=== PATIENT | female | born 1990 | race Caucasian/White ===

== ENCOUNTER 2022-10-26 08:21 | Observation (INO) | payer BC ==
[2022-10-26] MEDS ORDERED: IPRATROPIUM-ALBUTEROL 3 ML NEB INHALATION STA ×2 (08:53→11:33)
--- NOTE | 2022-10-26 09:00 | ED ---
SOB HPI - General Chief Complaint: Shortness of Breath Stated Complaint: SOB Time Seen by Provider: 10/26/22 08:42 Source: patient, RN notes reviewed Mode of arrival: ambulatory Limitations: no limitations - History of Present Illness Initial Comments: This is a 32-year-old female who presents to the emergency department for coughing and shortness of breath. States that the symptoms started approximately 11 days ago. She went to urgent care 3 days ago and was started on prednisone and amoxicillin. States that she has continued to have no relief from these medications. She is also using her rescue inhaler and nebulizer breathing treatments at home, again with no relief. States that she feels "crackling" in her chest. With regards to the shortness of breath, states that she feels like she cannot catch her breath or take a deep breath. Also reports exposure to ammonia in her dog urine and is concerned that this may be contributing to her symptoms. Denies any fevers, chills, sore throat, palpitations, abdominal pain, nausea, v omiting, diarrhea, back pain, or headaches. MD Complaint: shortness of breath, cough, chest pain Onset/Timin -: days(s) - Related Data Home Medications Medication Instructions Recorded Confirmed Albuterol Sulfate [Albuterol 2 puff PO RT-Q4H PRN 10/26/22 10/26/22 Sulfate Hfa] Amoxic-Pot Clav 875-125Mg 1 tab PO BID 10/26/22 10/26/22 [Augmentin 875-125] Cetirizine HCl [Zyrtec] 10 mg PO DAILY 10/26/22 10/26/22 Omeprazole [PriLOSEC] 20 mg PO DAILY 10/26/22 10/26/22 predniSONE [Deltasone] 40 mg PO BID 10/26/22 10/26/22 Allergies Allergy/AdvReac Type Severity Reaction Status Date / Time No Known Allergies Allergy Verified 10/26/22 11:33 Review of Systems ROS Statement: Those systems with pertinent positive or pertinent negative responses have been documented in the HPI. ROS Other: All systems not noted in ROS Statement are negative. Past Medical History Past Medical History: Asthma History of Any Multi-Drug Resistant Organisms: None Reported Past Surgical History: Section, Tonsillectomy Past Psychological History: No Psychological Hx Reported Smoking Status: Former smoker Past Alcohol Use History: None Reported Past Drug Use History: None Reported General Exam Limitations: no limitations General appearance: alert, in no apparent distress Head exam: Present: atraumatic, normocephalic, normal inspection Respiratory exam: Present: wheezes, decreased breath sounds, prolonged expiratory, other (Speaking in 2-3 word sentences) Cardiovascular Exam: Present: regular rate, normal rhythm, normal heart sounds. Absent: systolic murmur, diastolic murmur, rubs, gallop, clicks Neurological exam: Present: alert, oriented X3, CN II-XII intact Psychiatric exam: Present: normal affect, normal mood Skin exam: Present: warm, dry, intact, normal color. Absent: rash Course Vital Signs 10/26/22 10/26/22 10/26/22 08:39 09:13 09:44 Temperature 98.1 F Pulse Rate 91 84 Respiratory 16 18 20 Rate Blood Pressure 128/86 O2 Sat by Pulse 96 Oximetry 10/26/22 10/26/22 10/26/22 09:50 10:23 11:46 Temperature 98.2 F Pulse Rate 84 61 84 Respiratory 20 18 18 Rate Blood Pressure 130/82 O2 Sat by Pulse 98 Oximetry 10/26/22 10/26/22 11:55 12:20 Temperature 98.6 F Pulse Rate 88 78 Respiratory 18 18 Rate Blood Pressure 137/85 O2 Sat by Pulse 98 Oximetry Medical Decision Making - Medical Decision Making This is a 32-year-old female who presents to the emergency department for coughing and shortness of breath. Was pt. sent in by a medical professional or institution? @ -No Did you speak to anyone other than the patient for history? @ -No Did you review nursing and triage notes? @ -Yes, and I agree, it is accurate with regards to the patient's symptoms. Were old charts reviewed? @ -No Differential Diagnosis? @ -Differential Dyspnea: Coronary syndrome, arrhythmia, tamponade, asthma, COPD, pulmonary embolism, pneumonia, pneumothorax, pulmonary effusion, anaphylaxis, diabetic ketoacidosis, flailed chest, pulmonary contusion, diaphragmatic rupture, anemia, neuromuscular, this is not meant to be an all-inclusive list. EKG interpreted by me (3pts min.)? @ -EKG interpreted by me demonstrating the following: Sinus rhythm with occasional PVCs. Ventricular rate 70 beats per minute, [place] interval 152 ms, QRS duration 112 ms, QTC 400 ms. X-rays interpreted by me (1pt min.)? @ -Chest x-ray obtained, my interpretation identifies no localized consolidations or infiltrates. CT interpreted by me (1pt min.)? @ -Not obtained U/S interpreted by me (1pt. min.)? @ -Not obtained What testing was considered but not performed? (CT, X-rays, U/S, labs)? Why? @ -None What meds were considered but not given? Why? @ -None Did you discuss the management of the patient with other professionals? @ -Yes, Dr. Ambriz, who accepts the patient for admission. Did you reconcile home meds? @ -No Was smoking cessation discussed for >3mins.? @ -No Was critical care preformed (if so, how long)? @ -No Were there social determinants of health that impacted care today? How? (Homelessness, low income, unemployed, alcoholism, drug addiction, transportation, low edu. Level, literacy, decrease access to med. care, usp, rehab)? @ -No Was there de-escalation of care discussed even if they declined? (Discuss DNR or withdrawal of care, Hospice)? @ -No What co-morbidities impacted this encounter? (DM, HTN, Smoking, COPD, CAD, Cancer, CVA, Hep., AIDS, mental health diagnosis, sleep apnea, morbid obesity)? @ -Asthma Was patient admitted / discharged? @ -Admitted. Lab work obtained revealing leukocytosis and was otherwise nonactionable. Chest x-ray reveals no acute process. Patient was given a DuoNeb breathing treatment with only minor improvement in symptoms. She continued to speak in 2-3 words sentences and was having a notably difficult time catching her breath. Symptoms likely related to an asthma exacerbation. Given her reported severity of her symptoms, patient does not feel comfortable going home. She was subsequently admitted to medicine for asthma exacerbation with failed outpatient management. Solu-Medrol was administered. Pro- calcitonin and CRP were also added onto blood work with results pending at the time of admission. Undiagnosed new problem with uncertain prognosis? @ -None Drug Therapy requiring intensive monitoring for toxicity (Heparin, Nitro, Insulin, Cardizem)? @ -None Were any procedures done? @ -None Diagnosis/symptom? @ -Asthma exacerbation Acute, or Chronic, or Acute on Chronic? @ -Acute on chronic Uncomplicated (without systemic symptoms) or Complicated (systemic symptoms)? @ -Uncomplicated Side effects of treatment? @ -None Exacerbation, Progression, or Severe Exacerbation] @ -Exacerbation Poses a threat to life or bodily function? @ -Yes This case was discussed in detail with the attending ED physician, Dr. Mckeon. Presentation, findings, and treatment plan discussed in detail as well. - Lab Data Result diagrams: 10/26/22 08:59 10/26/22 08:59 Lab Results 10/26/22 10/26/22 10/26/22 Range/Units 08:59 08:59 08:59 WBC 13.6 H (3.8-10.6) k/uL RBC 5.24 (3.80-5.40) m/uL Hgb 13.2 (11.4-16.0) gm/dL Hct 39.3 (34.0-46.0) % MCV 75.0 L (80.0-100.0) fL MCH 25.3 (25.0-35.0) pg MCHC 33.7 (31.0-37.0) g/dL RDW 14.8 (11.5-15.5) % Plt Count 339 (150-450) k/uL MPV 6.9 Neutrophils % 70 % Lymphocytes % 22 % Monocytes % 5 % Eosinophils % 2 % Basophils % 0 % Neutrophils # 9.4 H (1.3-7.7) k/uL Lymphocytes # 2.9 (1.0-4.8) k/uL Monocytes # 0.7 (0-1.0) k/uL Eosinophils # 0.3 (0-0.7) k/uL Basophils # 0.1 (0-0.2) k/uL Microcytosis Slight PT 10.9 (9.0-12.0) sec INR 1.0 (<1.2) APTT 22.8 (22.0-30.0) sec D-Dimer 0.48 (<0.60) mg/L FEU Sodium 138 (137-145) mmol/L Potassium 3.5 (3.5-5.1) mmol/L Chloride 104 (98-107) mmol/L Carbon Dioxide 25 (22-30) mmol/L Anion Gap 9 mmol/L BUN 13 (7-17) mg/dL Creatinine 0.84 (0.52-1.04) mg/dL Est GFR (CKD-EPI)AfAm >90 (>60 ml/min/1.73 sqM) Est GFR (CKD-EPI)NonAf >90 (>60 ml/min/1.73 sqM) Glucose 86 (74-99) mg/dL Plasma Lactic Acid Cong (0.7-2.0) mmol/L Calcium 8.9 (8.4-10.2) mg/dL Total Bilirubin 0.6 (0.2-1.3) mg/dL AST 29 (14-36) U/L ALT 21 (4-34) U/L Alkaline Phosphatase 79 (38-126) U/L Ammonia (<30) umol/L Troponin I (0.000-0.034) ng/mL C-Reactive Protein (<1.0) mg/dL Total Protein 6.9 (6.3-8.2) g/dL Albumin 3.8 (3.5-5.0) g/dL HCG, Qual Not Detected Influenza Type A (PCR) (Not Detectd) Influenza Type B (PCR) (Not Detectd) RSV (PCR) (Not Detectd) SARS-CoV-2 (PCR) (Not Detectd) 10/26/22 10/26/22 10/26/22 Range/Units 08:59 08:59 08:59 WBC (3.8-10.6) k/uL RBC (3.80-5.40) m/uL Hgb (11.4-16.0) gm/dL Hct (34.0-46.0) % MCV (80.0-100.0) fL MCH (25.0-35.0) pg MCHC (31.0-37.0) g/dL RDW (11.5-15.5) % Plt Count (150-450) k/uL MPV Neutrophils % % Lymphocytes % % Monocytes % % Eosinophils % % Basophils % % Neutrophils # (1.3-7.7) k/uL Lymphocytes # (1.0-4.8) k/uL Monocytes # (0-1.0) k/uL Eosinophils # (0-0.7) k/uL Basophils # (0-0.2) k/uL Microcytosis PT (9.0-12.0) sec INR (<1.2) APTT (22.0-30.0) sec D-Dimer (<0.60) mg/L FEU Sodium (137-145) mmol/L Potassium (3.5-5.1) mmol/L Chloride (98-107) mmol/L Carbon Dioxide (22-30) mmol/L Anion Gap mmol/L BUN (7-17) mg/dL Creatinine (0.52-1.04) mg/dL Est GFR (CKD-EPI)AfAm (>60 ml/min/1.73 sqM) Est GFR (CKD-EPI)NonAf (>60 ml/min/1.73 sqM) Glucose (74-99) mg/dL Plasma Lactic Acid Cong 1.2 (0.7-2.0) mmol/L Calcium (8.4-10.2) mg/dL Total Bilirubin (0.2-1.3) mg/dL AST (14-36) U/L ALT (4-34) U/L Alkaline Phosphatase (38-126) U/L Ammonia <9 (<30) umol/L Troponin I <0.012 (0.000-0.034) ng/mL C-Reactive Protein (<1.0) mg/dL Total Protein (6.3-8.2) g/dL Albumin (3.5-5.0) g/dL HCG, Qual Influenza Type A (PCR) Not Detected (Not Detectd) Influenza Type B (PCR) Not Detected (Not Detectd) RSV (PCR) Not Detected (Not Detectd) SARS-CoV-2 (PCR) Not Detected (Not Detectd) 10/26/22 Range/Units 08:59 WBC (3.8-10.6) k/uL RBC (3.80-5.40) m/uL Hgb (11.4-16.0) gm/dL Hct (34.0-46.0) % MCV (80.0-100.0) fL MCH (25.0-35.0) pg MCHC (31.0-37.0) g/dL RDW (11.5-15.5) % Plt Count (150-450) k/uL MPV Neutrophils % % Lymphocytes % % Monocytes % % Eosinophils % % Basophils % % Neutrophils # (1.3-7.7) k/uL Lymphocytes # (1.0-4.8) k/uL Monocytes # (0-1.0) k/uL Eosinophils # (0-0.7) k/uL Basophils # (0-0.2) k/uL Microcytosis PT (9.0-12.0) sec INR (<1.2) APTT (22.0-30.0) sec D-Dimer (<0.60) mg/L FEU Sodium (137-145) mmol/L Potassium (3.5-5.1) mmol/L Chloride (98-107) mmol/L Carbon Dioxide (22-30) mmol/L Anion Gap mmol/L BUN (7-17) mg/dL Creatinine (0.52-1.04) mg/dL Est GFR (CKD-EPI)AfAm (>60 ml/min/1.73 sqM) Est GFR (CKD-EPI)NonAf (>60 ml/min/1.73 sqM) Glucose (74-99) mg/dL Plasma Lactic Acid Cong (0.7-2.0) mmol/L Calcium (8.4-10.2) mg/dL Total Bilirubin (0.2-1.3) mg/dL AST (14-36) U/L ALT (4-34) U/L Alkaline Phosphatase (38-126) U/L Ammonia (<30) umol/L Troponin I (0.000-0.034) ng/mL C-Reactive Protein <0.5 (<1.0) mg/dL Total Protein (6.3-8.2) g/dL Albumin (3.5-5.0) g/dL HCG, Qual Influenza Type A (PCR) (Not Detectd) Influenza Type B (PCR) (Not Detectd) RSV (PCR) (Not Detectd) SARS-CoV-2 (PCR) (Not Detectd) - Radiology Data Radiology results: report reviewed, image reviewed Disposition Clinical Impression: Asthma exacerbation Disposition: ADMITTED IP TO THIS HOSP
[2022-10-26 09:23] LABS: Basophils # (A) 0.1 k/uL (0-0.2); Basophils % (A) 0 %; Eosinophils # (A) 0.3 k/uL (0-0.7); Eosinophils % (A) 2 %; HCT 39.3 % (34.0-46.0); HGB 13.2 gm/dL (11.4-16.0); Lymphocytes # (A) 2.9 k/uL (1.0-4.8); Lymphocytes % (A) 22 %; MCH 25.3 pg (25.0-35.0); MCHC 33.7 g/dL (31.0-37.0); Mean Platelet Volume 6.9; Microcytosis Slight; Monocytes # (A) 0.7 k/uL (0-1.0); Monocytes % (A) 5 %; Neutrophils # (A) 9.4 k/uL (1.3-7.7); Neutrophils % (A) 70 %; Platelet Count 339 k/uL (150-450); RBC 5.24 m/uL (3.80-5.40); RDW 14.8 % (11.5-15.5); WBC 13.6 k/uL (3.8-10.6)
[2022-10-26 09:30] LABS: HCG,Qualitative Serum Not Detected
[2022-10-26 09:32] LABS: Lactic Acid, Venous 1.2 mmol/L (0.7-2.0)
[2022-10-26 09:39] LABS: ALT 21 U/L (4-34); AST 29 U/L (14-36); African American GFR (CKD) >90 (>60 ml/min/1.73 sqM); Albumin 3.8 g/dL (3.5-5.0); Alkaline Phosphatase 79 U/L (38-126); Anion Gap 9 mmol/L; Blood Urea Nitrogen 13 mg/dL (7-17); Calcium 8.9 mg/dL (8.4-10.2); Carbon Dioxide 25 mmol/L (22-30); Chloride 104 mmol/L (98-107); Glucose 86 mg/dL (74-99); Non-African American GFR(CKD) >90 (>60 ml/min/1.73 sqM); Potassium 3.5 mmol/L (3.5-5.1); Sodium 138 mmol/L (137-145); Total Bilirubin 0.6 mg/dL (0.2-1.3); Total Protein 6.9 g/dL (6.3-8.2)
[2022-10-26 09:48] LABS: Partial Thromboplastin Time 22.8 sec (22.0-30.0); Prothrombin Time 10.9 sec (9.0-12.0)
--- NOTE | 2022-10-26 10:33 | XR ---
EXAMINATION TYPE: XR chest 2V DATE OF EXAM: 10/26/2022 COMPARISON: NONE TECHNIQUE: PA and lateral views submitted. HISTORY: Difficulty breathing FINDINGS: The lungs are clear and there is no pneumothorax, pleural effusion, or focal pneumonia. Heart size normal and no overt failure. Osseous structures demonstrate hypertrophic and degenerative changes of the spine. IMPRESSION: 1. No acute process.
[2022-10-26] MEDS ORDERED: ACETAMINOPHEN TAB 325 MG TAB PO PRN (11:12)
[2022-10-26] MEDS ORDERED: IBUPROFEN 400 MG TAB PO PRN (11:12)
[2022-10-26] MEDS ORDERED: KETOROLAC 15 MG/ML 1 ML VIAL IVP PRN (11:12)
[2022-10-26] MEDS ORDERED: ONDANSETRON 4 MG/2 ML VIAL IVP PRN (11:12)
[2022-10-26] MEDS ORDERED: NALOXONE 0.4 MG/ML 1 ML VIAL IV PRN (11:12)
[2022-10-26] MEDS ORDERED: methylPREDNISolone SOD SUCCI 125 MG/2 ML VIAL IV STA (11:13)
[2022-10-26] MEDS ORDERED: ALPRAZolam 0.25 MG TAB PO PRN (14:27)
[2022-10-26] MEDS ORDERED: CALCIUM CARBONATE 500 MG CHEWABLE PO PRN (14:27)
[2022-10-26] MEDS ORDERED: MELATONIN 3 MG TABLET PO PRN (14:27)
[2022-10-26] MEDS ORDERED: LACTULOSE 20 GM/30 ML CUP PO PRN (14:27)
[2022-10-26] MEDS: IPRATROPIUM-ALBUTEROL 3 ML NEB INHALATION SCH ×2 (15:06→19:28)
--- NOTE | 2022-10-26 16:33 | P.HPIM ---
History of Present Illness H&P Date: 10/26/22 Chief Complaint: Short of breath This is a pleasant 32-year-old patient who follows Dr. Maryam Crawford. Patient is due to see her for the first time soon. Patient was diagnosed with asthma at age of 8. Patient been smoking on and off since the age of 8. Symptoms got worse after the COVID.. Patient admitted through a divorce and back to smoking. Also smoking recently. Started becoming more short of breath wheezing congested not able to expectorate. No fever no chills. Presented to ER. Did feel a bit better after getting DuoNeb and IV Solu Medrol the ER. Patient does also have reflux. And she thinks she has put on some weight recently. Review of systems: GEN.: Tired EYES: None HEENT: None NECK: None RESPIRATORY: As above CARDIOVASCULAR: None GASTROINTESTINAL: Reflex GENITOURINARY: None MUSCULOSKELETAL: None LYMPHATICS: None HEMATOLOGICAL: None PSYCHIATRY: None NEUROLOGICAL: None Past medical history to include: Asthma. GERD. Social history: . 10-year-old daughter. Works at [employer]. Smoking cigarettes intermittently. Denies use of recreational drugs Physical examination: VITAL SIGNS: 98.1, 91, 16, 128/86, 96% room air GENERAL: BMI 49.1, sitting up awake not in distress. EYES: Pupils equal. Conjunctiva normal. HEENT: External appearance of nose and ears normal, oral cavity grossly normal. NECK: JVD not raised; masses not palpable. HEART: First and second heart sounds are normal; no edema. LUNGS: Respiratory rate increased; decreased breath sounds. ABDOMEN: Soft, nontender, liver spleen not palpable, no masses palpable. PSYCH: Alert and oriented x3; mood and affect normal. MUSCULOSKELETAL:No Clubbing/cyanosis;muscles-grossly intact NEUROLOGICAL: Cranial nerves grossly intact; no facial asymmetry, power and sensation grossly intact. LYMPHATICS: No lymph nodes palpable in the axilla and neck INVESTIGATIONS, reviewed in the clinical context: WBC 13.6 hemoglobin 13.2 platelets 339 sodium 138 potassium 3.5 creatinine 0.84 Procalcitonin 0.04 at CG not detected Influenza type A, B, RSV, COVID-19: Not detected EKG tracing personally reviewed by me-normal sinus rhythm. PVC. Chest x-ray film personally reviewed by me-clear Assessment and plan: -Acute obstructive asthma exacerbation possibly precipitated by cigarette smoking DuoNeb. IV Solu-Medrol. -GERD Prilosec -Situational anxiety from divorce Discussed with patient about mindfulness. Told the patient to abdominal appendectomy: Smiling mind. -Morbid obesity BMI 49.1 Weight loss measures Care was discussed with the patient. Questions answered. Past Medical History Past Medical History: Asthma History of Any Multi-Drug Resistant Organisms: None Reported Past Surgical History: Section, Tonsillectomy Past Psychological History: No Psychological Hx Reported Smoking Status: Former smoker Past Alcohol Use History: None Reported Past Drug Use History: None Reported Medications and Allergies Home Medications Medication Instructions Recorded Confirmed Type Albuterol Sulfate [Albuterol 2 puff PO RT-Q4H PRN 10/26/22 10/26/22 History Sulfate Hfa] Amoxic-Pot Clav 875-125Mg 1 tab PO BID 10/26/22 10/26/22 History [Augmentin 875-125] Cetirizine HCl [Zyrtec] 10 mg PO DAILY 10/26/22 10/26/22 History Omeprazole [PriLOSEC] 20 mg PO DAILY 10/26/22 10/26/22 History predniSONE [Deltasone] 40 mg PO BID 10/26/22 10/26/22 History Allergies Allergy/AdvReac Type Severity Reaction Status Date / Time No Known Allergies Allergy Verified 10/26/22 11:33 Physical Exam Vitals: Vital Signs Temp Pulse Pulse Resp BP BP Pulse Ox 10/26/22 15:17 84 10/26/22 15:06 80 10/26/22 15:00 98.1 F 83 20 113/59 96 10/26/22 12:20 98.6 F 78 18 137/85 98 10/26/22 11:55 88 18 10/26/22 11:46 84 18 10/26/22 10:23 98.2 F 61 18 130/82 98 10/26/22 09:50 84 20 10/26/22 09:44 84 20 10/26/22 09:13 18 10/26/22 08:39 98.1 F 91 16 128/86 96 Intake and Output 10/26/22 10/26/22 10/26/22 06:59 14:59 22:59 Other: # Voids 1 Weight 133.81 kg Results CBC & Chem 7: 10/26/22 08:59 10/26/22 08:59 Labs: Abnormal Lab Results - Last 24 Hours (Table) 10/26/22 Range/Units 08:59 WBC 13.6 H (3.8-10.6) k/uL MCV 75.0 L (80.0-100.0) fL Neutrophils # 9.4 H (1.3-7.7) k/uL
[2022-10-26] MEDS: methylPREDNISolone SOD SUCCI 40 MG/ML 1 ML VIAL IV SCH (17:29)
[2022-10-26] MEDS: PANTOPRAZOLE 40 MG TABLET PO SCH (17:49)
[2022-10-26] MEDS: ENOXAPARIN 40 MG/0.4 ML SYRINGE SQ SCH (17:49)
[2022-10-27] MEDS: methylPREDNISolone SOD SUCCI 40 MG/ML 1 ML VIAL IV SCH ×2 (00:08→08:15)
[2022-10-27] MEDS: IPRATROPIUM-ALBUTEROL 3 ML NEB INHALATION SCH ×3 (06:46→15:24)
[2022-10-27] MEDS: ENOXAPARIN 40 MG/0.4 ML SYRINGE SQ SCH (08:15)
[2022-10-27] MEDS: PANTOPRAZOLE 40 MG TABLET PO SCH (08:15)
[2022-10-27] MEDS ORDERED: PANTOPRAZOLE 40 MG/10 ML VIAL IV SCH (09:00)
[2022-10-27] MEDS ORDERED: LORATADINE 10 MG TAB PO SCH (09:00)
[2022-10-27 09:12] VITALS: BP 129/84; RESP 18; TEMP 97.8
[2022-10-27 11:38] VITALS: BMI 49.1
[2022-10-27 11:56] VITALS: PULSE 80
--- NOTE | 2022-10-27 18:00 | P.DS ---
Providers Date of admission: 10/26/22 11:18 Expected date of discharge: 10/27/22 Attending physician: Heath Ambriz Primary care physician: Maryam Crawford [facility] Course: Chief Complaint: Short of breath This is a pleasant 32-year-old patient who follows Dr. Maryam Crawford. Patient is due to see her for the first time soon. Patient was diagnosed with asthma at age of 8. Patient been smoking on and off since the age of 8. Symptoms got worse after the COVID.. Patient admitted through a divorce and back to smoking. Also smoking recently. Started becoming more short of breath wheezing congested not able to expectorate. No fever no chills. Presented to ER. Did feel a bit better after getting DuoNeb and IV Solu Medrol the ER. Patient does also have reflux. And she thinks she has put on some weight recently. 10/27/2022: Breathing much better. Has been up and down. After the bathroom. Doing much better. Care was discussed with the patient. Prescribed Pulmicort inhaler and prednisone. Again discussed about smoking and reflux. Diet. Questions answered Past medical history to include: Asthma. GERD. Social history: . 10-year-old daughter. Works at [employer]. Smoking cigarettes intermittently. Denies use of recreational drugs Physical examination: VITAL SIGNS: 97.8, 74, 18, 129/84, 97% room air GENERAL: BMI 49.1, sitting up comfortable EYES: Pupils equal. Conjunctiva normal. HEENT: External appearance of nose and ears normal, oral cavity grossly normal. NECK: JVD not raised; masses not palpable. HEART: First and second heart sounds are normal; no edema. LUNGS: Respiratory rate normal; improved air entry ABDOMEN: Soft, nontender, liver spleen not palpable, no masses palpable. PSYCH: Alert and oriented x3; mood and affect normal. INVESTIGATIONS, reviewed in the clinical context: WBC 13.6 hemoglobin 13.2 platelets 339 sodium 138 potassium 3.5 creatinine 0.84 Procalcitonin 0.04 at CG not detected Influenza type A, B, RSV, COVID-19: Not detected EKG tracing personally reviewed by me-normal sinus rhythm. PVC. Chest x-ray film personally reviewed by me-clear Assessment and plan: -Acute obstructive asthma exacerbation possibly precipitated by cigarette smoking: Better DuoNeb. IV Solu-Medrol. Discharged on Pulmicort Flexhaler 1 puff twice a day. Prednisone taper. Albuterol when necessary. -GERD Prilosec -Situational anxiety from divorce Discussed with patient about mindfulness. Told the patient to use the robert:: Smiling mind. -Morbid obesity BMI 49.1 Weight loss measures Disposition: Home Plan - Discharge Summary New Discharge Prescriptions: New Budesonide [Pulmicort Flexhaler] 1 puff INHALATION BID #1 each predniSONE 10 mg PO DAILY #30 tab Continue Albuterol Sulfate [Albuterol Sulfate Hfa] 2 puff PO RT-Q4H PRN PRN Reason: Shortness Of Breath Omeprazole [PriLOSEC] 20 mg PO DAILY Cetirizine HCl [Zyrtec] 10 mg PO DAILY Discontinued predniSONE [Deltasone] 40 mg PO BID Amoxic-Pot Clav 875-125Mg [Augmentin 875-125] 1 tab PO BID Discharge Medication List Albuterol Sulfate [Albuterol Sulfate Hfa] 2 puff PO RT-Q4H PRN 10/26/22 [History] Cetirizine HCl [Zyrtec] 10 mg PO DAILY 10/26/22 [History] Omeprazole [PriLOSEC] 20 mg PO DAILY 10/26/22 [History] Budesonide [Pulmicort Flexhaler] 1 puff INHALATION BID #1 each 10/27/22 [Rx] predniSONE 10 mg PO DAILY #30 tab 10/27/22 [Rx] Follow up Appointment(s)/Referral(s): Maryam Crawford DO [Primary Care Provider] - 1-2 days Patient Instructions/Handouts: Asthma (DC) Discharge Disposition: HOME SELF-CARE
== END 2022-10-27 15:49 | disposition home or self-care (01) ==
LOC: EC 08:21 → 6NMEDSUR 11:18
PROVIDERS: ADMIT Hospitalist; ATTEND Hospitalist
DX: J45.901 Unspecified asthma with (acute) exacerbation (principal); F17.210 Nicotine dependence, cigarettes, uncomplicated; K21.9 Gastro-esophageal reflux disease without esophagitis; E66.01 Morbid (severe) obesity due to excess calories; Z68.42 Body mass index [BMI] 45.0-49.9, adult; Z79.899 Other long term (current) drug therapy; F41.8 Other specified anxiety disorders; Z63.5 Disruption of family by separation and divorce
CPT/HCPCS: 96376 ×2; 96372; 96374; 99285; 36415; 94640 ×4; 93005; 85379; 80053; 82140; 83605; 84484; 85025; 85610; 85730; 86140; 84703; 84145; 87636; 71046; G0378 ×2; J2920 ×2; J2930; J1650